=== PATIENT | male | born 1960 | race Caucasian/White ===

== ENCOUNTER → 2024-09-23 | Outpatient (CLI) | payer OTHER, SELFPAY ==
--- NOTE | 2024-09-23 09:57 | NM_ITS ---
EXAM: Iodine 131 therapy for thyroid cancer. CLINICAL HISTORY: Thyroid cancer. COMPARISON: None TECHNIQUE: Patient ingested a 156.3 mCi tablet of iodine 131 without any difficulty. FINDINGS: Patient ingested a 156.3 mCi tablet of iodine 131 without any difficulty. NM/Therapy I-131 IMPRESSION: Patient ingested a 156.3 mCi tablet of iodine 131 without any difficulty. Reading Location: [id number]
== END | disposition home or self-care (01) ==
PROVIDERS: PCP Family Medicine; Referring Provider Internal Medicine Endocrinology, Diabetes & Metabolism; Visit Provider Internal Medicine Endocrinology, Diabetes & Metabolism
DX: C73 Malignant neoplasm of thyroid gland (principal)
CPT/HCPCS: 79005; A9517

== ENCOUNTER → 2024-09-27 | Outpatient (CLI) | payer OTHER, SELFPAY ==
--- NOTE | 2024-09-27 10:30 | NM_ITS ---
PROCEDURE: THYROID WHOLE BODY I-131 SCAN REASON FOR EXAM: THYROID CA TECHNIQUE: Thyroid whole-body imaging following ingestion of 156.3 mCi of iodine 131. RADIOPHARMACEUTICAL: 156.3 mCi of iodine 131 DOSE COMPARISON: None FINDINGS: Uptake is seen in the region of the left lobe of the thyroid and small amount in the right lobe. No evidence of distal metastasis. NM/Thyroid Whole Body I-131 Scan IMPRESSION: No evidence of distal metastasis. Reading Location: [id number]
== END | disposition home or self-care (01) ==
LOC: NM 10:26
PROVIDERS: PCP Family Medicine; Referring Provider Internal Medicine Endocrinology, Diabetes & Metabolism; Visit Provider Internal Medicine Endocrinology, Diabetes & Metabolism
DX: C73 Malignant neoplasm of thyroid gland (principal)
CPT/HCPCS: 78018